=== PATIENT | female | born 1940 | race Two or more races ===

== ENCOUNTER 2022-03-31 08:34 | Emergency (ER) | payer MEDICAID ==
[~2022-03-31] VITALS: Ht 152.4 cm; Wt 65.0 kg
[2022-03-31] MEDS ORDERED: KETOROLAC 60MG/2ML VIAL IM STA (08:58)
[2022-03-31] MEDS ORDERED: DICYCLOMINE 10 MG/5 ML ORAL SYR PO STA ×2 (08:58→09:13)
[2022-03-31] MEDS ORDERED: ACETAMINOPHEN 325MG TABLET PO STA (09:13)
[2022-03-31 10:10] LABS: HEMATOCRIT. 32.9 % (36.0-48.0); MEAN CORPUSCULAR HEMOGLOBIN 31.1 pg (28.0-32.0); MEAN CORPUSCULAR VOLUME 92.7 fL (81.0-99.0); MEAN PLATELET VOLUME 8.7 fl (7.4-10.4); PLATELET 224 x1000/uL (130-400); RED BLOOD CELL COUNT 3.55 mill/uL (4.2-5.4); RED CELL DISTRIBUTION WIDTH 13.1 % (11.6-14.6)
[2022-03-31 10:12] LABS: CHLORIDE 103 mEq/L (98-107)
[2022-03-31 10:15] LABS: PROTHROMBIN TIME 10.5 sec (9.6-11.0)
[2022-03-31 10:18] LABS: CLARITY URINE CLEAR (CLEAR); COLOR URINE YELLOW (YELLOW); KETONES URINE NEGATIVE (NEGATIVE); LEUKOCYTE ESTERASE URINE TRACE (NEGATIVE); NITRITE URINE NEGATIVE (NEGATIVE); OCCULT BLOOD URINE TRACE (NEGATIVE); PH URINE 6.5 (4.5-8.0); PROTEIN URINE NEGATIVE (NEGATIVE); SPECIFIC GRAVITY URINE 1.009 (1.005-1.030); UROBILINOGEN URINE 0.2 E.U./dL (0.2-1.0)
[2022-03-31 11:43] LABS: PLATELET ESTIMATE NORMAL
[2022-03-31] MEDS ORDERED: KETOROLAC 60MG/2ML VIAL IM ONE (12:00)
[2022-03-31] MEDS ORDERED: HYDROCODONE/ACETAMINOPHEN 5/325MG TABLET PO ONE (12:00)
[2022-03-31 12:28] VITALS: BP 148/70
[2022-03-31] MEDS ORDERED: IBUP-2028 MT (13:06)
[2022-03-31] MEDS ORDERED: DICY10CA88 MT (13:06)
== END 2022-03-31 13:37 | disposition home or self-care (01) ==
LOC: ER 08:34
DX: R10.11 Right upper quadrant pain (principal); M48.56XA Collapsed vertebra, not elsewhere classified, lumbar region, initial encounter for fracture; I10 Essential (primary) hypertension
CPT/HCPCS: 36415; 74176; 80053; 81003; 83690; 85025; 85610; 96372; 99284; J1885